=== PATIENT | male | born 1970 | race Caucasian/White ===

== ENCOUNTER → 2021-01-04 | Outpatient (CLI) | payer BC ==
[~2021-01-04] MED LIST: BENTYL10 MG PO; Carafate1 GM PO; FAMOTIDINE 1010 MG PO; MAXITROL OP; NORCO 325 MG-51 TAB PO; NORTRIPTYLINE10 MG PO; OMEPRAZOLE D/R20 MG PO; PANTOPRAZOLE SO40 MG PO; PRILOSEC10 MG PO; ZANTAC 150150 MG PO
[2021-01-04 10:55] LABS: BUN 15 mg/dl (7-24); CHLORIDE 107 mmol/L (98-107); CREATININE 1.06 mg/dL (0.70-1.30); POTASSIUM 4.7 mmol/L (3.5-5.1); SODIUM 140 mmol/L (136-145)
== END | disposition home or self-care (01) ==
LOC: LAB 10:22
PROVIDERS: Nurse Practitioner Family; ATTEND Internal Medicine Cardiovascular Disease
DX: I24.8 Other forms of acute ischemic heart disease (principal)